=== PATIENT | male | born 1960 | race Caucasian/White ===

== ENCOUNTER 2017-10-22 18:46 | Observation (INO) ==
[2017-10-22] MEDS ORDERED: methylPREDNISolone 125 MG/2 ML VIAL IVP ONE (19:06)
[2017-10-22] MEDS ORDERED: Ipratropium/Albuterol Neb 3 ML IH ONE ×2 (19:06→21:20)
[2017-10-22] MEDS ORDERED: Aspirin 81 MG TAB.CHEW PO STA (19:09)
--- NOTE | 2017-10-22 19:12 | Emergency Department Note ---
Disposition Clinical Impression: Acute exacerbation of chronic obstructive airways disease, Chest pain Disposition: Admitted As Inpatient Condition: Fair Instructions: Chest Pain (ED), Chronic Obstructive Pulmonary Disease (ED) Reasons to Return/Additional Instructions: Patient is advised to follow up in 1-2 days with PCP / primary care doctor... and / or Specialist for a quick recheck Patient should return immediately if there is any change in symptoms, problems or needs help. Prescriptions: PredniSONE [Deltasone] 60 mg PO QDPC 7 Days #7 tablet Referrals: Pinky Martell [Primary Care Provider] - Forms: ED Satisfaction Letter Time of Disposition: 21:55 General Adult HPI - General Chief complaint: ED Shortness of Breath/Dyspnea Stated complaint: weak, difficulty breathing Time Seen by Provider: 10/22/17 19:00 Source: patient Limitations: no limitations Nursing Notes Reviewed: Yes Vital Signs Reviewed: Yes - History of Present Illness HPI Narrative: Patient presents today with CC of: short of breath Patient describes issue began around 1 PM when the patient was working on some windows when he developed significant shortness of breath while he was working in the sun. He has also been having cough and some sputum production recently. Patient had some chest pain that he described as tightnes bu that resolved and he is not having any pain now. Patient has multiple risk factors for cardiac disease including age, family history, male, smoking. Patient has stress test several years ago and was normal. Patient was feeling fine during the morning and yesterday, today he was working in the sun while this happened and thinks that eacerbated the problem. He was trying to work on the shady side of the house for most of the early part of the day [he is a satellite dish installer] Patient's did not have radiation of the tightness, nor did he have any vomiting. Patient does have a history of COPD. He uses inhalers. Patient has not been exposed to anybody sick. He denies hemoptysis leg swelling or tenderness Pain Scale: 0 - Related Data Home Medications Medication Instructions Recorded Confirmed Lisinopril [Zestril] 40 mg PO DAILY 10/22/17 10/22/17 Metoprolol Tartrate 50 mg PO BID 10/22/17 10/22/17 amLODIPine [Norvasc] 5 mg PO DAILY 10/22/17 10/22/17 Previous Rx's Medication Instructions Recorded PredniSONE [Deltasone] 60 mg PO QDPC 7 Days #7 tablet 10/22/17 Allergies Allergy/AdvReac Type Severity Reaction Status Date / Time azithromycin Allergy Hives Verified 10/22/17 19:09 [From Zithromax Z-Matti] All systems ED: reviewed and negative except as stated. Review of Systems: As Per HPI Past Medical History - Past Medical History Medical history: Reports: COPD, hypertension Psychiatric history: Reports: no psych history - Social History Smoking Status: Current every day smoker Smokeless Tobacco Status: No Alcohol use: Reports: none Drug use: Reports: none Physical Exam I have reviewed initial and available nurse's notes for the patient. The patient 's medications, allergies, and medical history was reviewed. Family, Social & Surg histories were reviewed and are not relevant except as noted above in the history of present illness, or below in the respective specific section. I have reviewed and agree with all vital signs synchronously available in EMR at the time of this dictation. Times documented are the time of computer entry, are not necessarily the time the event occurred. At least 10 systems reviewed with patient or surrogate during physical exam and are otherwise negative. Physical EXAM: General ~ Constitutional: Conscious & cooperative , generally healthy appearance Head: NCAT Eyes: Sclera white , conjunctiva clear , PERRL, non-icteric ENT : L Tympanic membrane normal color and landmarks R Tympanic membrane normal color and landmarks Canals are clear without significant drainage , no obstruction or vesicles , pinna and tragus non tender Nose with pink nasal mucosa, nares patent, non tender without bleeding Mouth - mucous membrane moist , pink , no lesions , no trismus Neck - no masses , supple , no cervical spinous process tenderness Pharynx - no exudate , no petechia or obvious lesions , no airway obstruction or stridor Hematologic ~ Lymphatic ~ Immunologic: Lymphadenopathy normal , no petechia , Skin color, nails and pulses unremarkable. Heart ~ Chest: Reg rate , nml Rhythm , nl S1/S2 , no MRG Lungs: Breath sounds equal , clear to auscultation bilaterally but some end expiratory wheezing, no rales or rhonchi , no CVA tenderness Gastrointestinal ~ Abd: Soft & non tender , BS + in 4 quads , No HSM or masses , no peritoneal signs GenitoUrinary: Deferred Musculoskeletal ~ Back ~ Extremities: Warm and w/o clubbing , cyanosis , or edema. No point tenderness , good ROM of major joints Neurologic: Cranial nerves grossly intact, good muscle strength , attention good , cooperative , Alert and oriented x4 Psychiatric: Calm , Insight and mood appropriate , Skin: No rashes , good skin turgor , cap refill 2-3 seconds , warm and dry - General Limitations: no limitations General appearance: alert, in no apparent distress Course - Reevaluation(s) Reevaluation #1: I had a long discussion with the patient regarding the visit, chief complaint, the assessment of the condition and the multiple Diagnosis that are being considered based on the patients complaint and evaluation COPD exacerbation, Chest pain We discussed the many of the BENEFITS of following discussed recommendations - like further testing and / or even admission to the hospital for more definitive care. We discussed the RISKS of not following the discussed recommends including incapacitation, deformity and . The patient verbalized understanding of both the Risks and the Benefits. The patient indicated that they would not be following my recommended advice, rather they will instead be following up with a Provider as an outpatient. I encouraged the patient to reconsider, but the patient was resolute. Family & friends were supportive. The patient had DMC (Decision Making Capability), and was alert and oriented to person, place, time, and situation. The patient showed no signs of intoxication or psychosis. I encouraged the patient to return or call 911 if urgent or emergent care was needed after leaving - The patient agreed. The patient was also encouraged to return if they reconsidered and would like further testing, consideration for admission or transfer to another institution for more testing or definitive care. Time: 20:10 Vital Signs Temperature 98.0 F 10/22/17 18:49 Pulse Rate 85 10/22/17 18:49 Respiratory Rate 24 10/22/17 18:49 Blood Pressure 188/102 10/22/17 18:49 O2 Sat by Pulse Oximetry 95 10/22/17 18:49 Temperature 99.1 F 10/22/17 21:20 Pulse Rate 80 10/22/17 21:20 Respiratory Rate 20 10/22/17 21:20 Blood Pressure 146/94 10/22/17 21:20 O2 Sat by Pulse Oximetry 94 10/22/17 21:20 Oxygen Delivery Oxygen Delivery Nasal Cannula Medical Decision Making - MDM Narrative Medical decision making narrative: MDM: History and physical exam is consistent with - COPD exacerbation,atypical CP DDx included multiple etiologies for the symptoms such as - atypical CP, ACS, Pneumonia, pneumothorax, Gerd, AAA, PE XRAYS: No Acute CP disease copd Critical Care: None Condition and evaluation here was discussed in detail. Labwork, and test results were reviewed with the patient. We discussed the radiology results as well patient felt significantly better after the breathing treatment and steroid medication in the emergency department. He did not want to stay around for additional troponin testing or be admitted to the hospital. I long discussion with the patient regarding risks and benefits please see informed refusal note. Patient wants to follow-up with his primary care provider as an outpatient. Patient did feel significantly better after the breathing treatment and steroid medication surrogate medication will be extended. Patient will continue to use his regular breathing treatments / inhalers Patient was doing very well and was ready to go home however when he went out to the car and started to exert himself he became more short of breath. Also was extremely humid and hot outside the patient had difficulty breathing again today came back and his troponin was rechecked and so was his EKG and the patient was given breathing treatment. He felt better again but he was concerned enough to agree to stay in the hospital. I contacted Dr. Barroso the patient was admitted as an observation patient for COPD exacerbation, atypical chest pain. - Lab Data Result diagrams: 10/22/17 18:55 10/22/17 18:55 Lab Results 10/22/17 10/22/17 10/22/17 Range/Units 18:55 18:55 18:55 WBC 14.0 H (4.3-11.1) K/mcL RBC 4.92 (4.19-5.50) M/mcL Hgb 16.2 (12.9-16.9) g/dL Hct 47.3 (37.5-50.1) % MCV 96.1 (83.0-100.0) fL MCH 32.9 (28.0-33.3) pg MCHC 34.2 (31.6-35.5) g/dL RDW 13.5 (11.5-14.5) % Plt Count 252 (140-400) K/mcL MPV 10.1 (9.4-12.4) fL Immature Gran % 0.3 (0-4) % Seg Neutrophils % 61.8 % Lymphocytes % 26.8 % Monocytes % 10.2 % Eosinophils % 0.5 % Basophils % 0.4 % Neutrophils # 8.7 (1.6-8.9) K/mcL Lymphocytes # 3.8 (0.6-4.6) K/mcL Monocytes # 1.4 H (0.0-1.3) K/mcL Eosinophils # 0.1 (0.0-0.6) K/mcL Basophils # 0.1 (0.0-0.2) K/mcL Sodium 134 L (136-145) mEq/L Potassium 4.2 (3.5-5.1) mEq/L Chloride 99 (98-107) mEq/L Carbon Dioxide 24 (23-29) mEq/L BUN 10 (6-20) mg/dL Creatinine 0.98 (0.70-1.30) mg/dL Est GFR ( Amer) > 60 (> 60) Est GFR (Non-Af Amer) > 60 (> 60) BUN/Creatinine Ratio 10 (6-26) Glucose 85 (70-105) mg/dL Calculated Osmolality 276 L (280-300) Lactic Acid 1.6 (0.5-2.2) mmol/L Calcium 9.9 (8.6-10.3) mg/dL Troponin I < 0.03 (< 0.04) ng/mL B-Natriuretic Peptide (Less than 100) pg/mL 10/22/17 10/22/17 10/22/17 Range/Units 18:55 20:59 20:59 WBC (4.3-11.1) K/mcL RBC (4.19-5.50) M/mcL Hgb (12.9-16.9) g/dL Hct (37.5-50.1) % MCV (83.0-100.0) fL MCH (28.0-33.3) pg MCHC (31.6-35.5) g/dL RDW (11.5-14.5) % Plt Count (140-400) K/mcL MPV (9.4-12.4) fL Immature Gran % (0-4) % Seg Neutrophils % % Lymphocytes % % Monocytes % % Eosinophils % % Basophils % % Neutrophils # (1.6-8.9) K/mcL Lymphocytes # (0.6-4.6) K/mcL Monocytes # (0.0-1.3) K/mcL Eosinophils # (0.0-0.6) K/mcL Basophils # (0.0-0.2) K/mcL Sodium (136-145) mEq/L Potassium (3.5-5.1) mEq/L Chloride (98-107) mEq/L Carbon Dioxide (23-29) mEq/L BUN (6-20) mg/dL Creatinine (0.70-1.30) mg/dL Est GFR ( Amer) (> 60) Est GFR (Non-Af Amer) (> 60) BUN/Creatinine Ratio (6-26) Glucose (70-105) mg/dL Calculated Osmolality (280-300) Lactic Acid 1.3 (0.5-2.2) mmol/L Calcium (8.6-10.3) mg/dL Troponin I < 0.03 (< 0.04) ng/mL B-Natriuretic Peptide 69 (Less than 100) pg/mL - Radiology Data Radiology results reviewed: Yes I reviewed the patient's radiology results. - EKG Data EKG #1 EKG attestation: Yes I reviewed and interpreted this EKG. EKG results narrative: HEART SCORE : H=1 E=1 A=1 R=2 T=0 HEART Score: H= Suspiciousness: High=2, mod=1, min=0 E= EKG: Significant ST=2, nonspecific repol=1, normal=0 A= Age: >65 =2, 45-65=1, ,45=0 R= Risk Factors: >3 RF or hx of ASVD=2, 1-2 RF=1, 0 RF=0 smoker, Lipids, HTN, diabetes mellitus, + family history, obesity, T= Troponin: >3xnrml=2, 1-3Xnrml=1, < nrml=0 EKG interpretation # 1 Rhythm - sinus rhythm Rate - 90 MO - 149 QRS - 109 QTC - 392 ST-T waves - nonspecific T-wave change flattening avl Injury pattern - no acute injury pattern EKG interpretation # 2 Rhythm - sinus rhythm Rate - 82 MO - 148 QRS - 97 QTC - 409 ST-T waves - nonspecific T-wave change flattening avl Injury pattern - no acute injury pattern
[2017-10-22] MEDS ORDERED: 0.9 % Sodium Chloride 1,000 ML IVC SCH (19:15)
[2017-10-22 19:16] LABS: Basophils # 0.1 K/mcL (0.0-0.2); Basophils % 0.4 %; Eosinophils # 0.1 K/mcL (0.0-0.6); Eosinophils % 0.5 %; Hematocrit 47.3 % (37.5-50.1); Hemoglobin 16.2 g/dL (12.9-16.9); Immature Granulocytes % 0.3 % (0-4); Lymphocytes # 3.8 K/mcL (0.6-4.6); Lymphocytes % 26.8 %; Mean Corpuscular HGB Conc 34.2 g/dL (31.6-35.5); Mean Corpuscular Hemoglobin 32.9 pg (28.0-33.3); Mean Corpuscular Volume 96.1 fL (83.0-100.0); Mean Platelet Volume 10.1 fL (9.4-12.4); Monocytes # 1.4 K/mcL (0.0-1.3); Monocytes % 10.2 %; Neutrophils # 8.7 K/mcL (1.6-8.9); Platelet Count 252 K/mcL (140-400); Red Blood Count 4.92 M/mcL (4.19-5.50); Red Cell Distribution Width 13.5 % (11.5-14.5); Segmented Neutrophils % 61.8 %
[2017-10-22 19:29] LABS: BUN/Creatinine Ratio 10 (6-26); Blood Urea Nitrogen 10 mg/dL (6-20); Calcium 9.9 mg/dL (8.6-10.3); Carbon Dioxide 24 mEq/L (23-29); Chloride 99 mEq/L (98-107); Glucose 85 mg/dL (70-105); Osmolality,Calculated 276 (280-300); Potassium 4.2 mEq/L (3.5-5.1); Sodium 134 mEq/L (136-145); Troponin I < 0.03 ng/mL (< 0.04); eGFR For African Americans > 60 (> 60); eGFR For Non-African Americans > 60 (> 60)
[2017-10-23] MEDS ORDERED: 0.9 % Sodium Chloride 1,000 ML IVC SCH ×2 (00:16)
[2017-10-23] MEDS ORDERED: Naloxone 0.4 MG/ML INJ IVP PRN (00:16)
[2017-10-23] MEDS: Ipratropium/Albuterol Neb 3 ML IH SCH ×5 (00:57→23:49)
[2017-10-23] MEDS: 0.9 % Sodium Chloride 1,000 ML IVC SCH ×2 (01:03→08:38)
[2017-10-23 06:57] LABS: INR 1.1; Prothrombin Time 11.7 Seconds (9.4-12.1)
[2017-10-23 06:58] LABS: Basophils % 0.1 %; Immature Granulocytes % 0.4 % (0-4); Lymphocytes # 1.1 K/mcL (0.6-4.6); Lymphocytes % 14.7 %; Mean Corpuscular HGB Conc 34.8 g/dL (31.6-35.5); Mean Corpuscular Hemoglobin 33.1 pg (28.0-33.3); Mean Corpuscular Volume 95.2 fL (83.0-100.0); Mean Platelet Volume 10.4 fL (9.4-12.4); Monocytes # 0.1 K/mcL (0.0-1.3); Monocytes % 0.9 %; Neutrophils # 6.2 K/mcL (1.6-8.9); Platelet Count 229 K/mcL (140-400); Red Blood Count 4.41 M/mcL (4.19-5.50); Red Cell Distribution Width 13.4 % (11.5-14.5); Segmented Neutrophils % 83.9 %
[2017-10-23 07:07] LABS: BUN/Creatinine Ratio 14 (6-26); Blood Urea Nitrogen 12 mg/dL (6-20); Carbon Dioxide 22 mEq/L (23-29); Chloride 102 mEq/L (98-107); Glucose 166 mg/dL (70-105); Hemoglobin 14.6 g/dL (12.9-16.9); Osmolality,Calculated 282 (280-300); Potassium 3.9 mEq/L (3.5-5.1); Sodium 134 mEq/L (136-145); eGFR For African Americans > 60 (> 60); eGFR For Non-African Americans > 60 (> 60)
[2017-10-23] MEDS: Lisinopril 20 MG TABLET PO SCH (08:37)
[2017-10-23] MEDS: amLODIPine 5 MG TABLET PO SCH (08:38)
--- NOTE | 2017-10-23 10:26 | Internal Med History&Physical ---
Date of Encounter: 10/23/17 Time of Encounter: 10:24 Assessment and Plan (1) HTN (hypertension) Current visit: Yes Status: Chronic on meds and sable continue to adjust and follow as needed Qualifiers: Hypertension type: essential hypertension Qualified Code(s): I10 - Essential (primary) hypertension (2) Acute exacerbation of chronic obstructive airways disease Current visit: Yes Status: Acute Acute exacerbation of COPD , long time smoker . advised strongly to quit Tobacco . Continue HHN and inhalers , short course of prednisone , Remove oxygen and start ambulation , add esteban doxy to cover for any potential community acquired organism. Nicotine patch . if he continues to improve like this he could be discharged home this evening if he wishes or in the morning EKG has been normal and toponin negative. CXR negative for infiltrate Internal Medicine - H&P: HPI Chief complaint: SOB and cough Admitted From: Emergency Dept History of present illness: Mr. Mims is a 57 year old male significant hx of COPD and HTN who was working on his windows when he started having SOB associated with wheeze and cough No fever or chills He had been having cough for some time and was having dirty looking sputum No nausea vomiting or dirrhea. he was treated in the ED and was discharged but became SOb again when to his car . he required oxygenation to keep his pulse oxy better . At the present time he feels much better and feels that his breathing ins in much better control Still has some cough no fever or chills Past Med Surg Social Fam HX - Past Medical History Medical history: COPD, hypertension Psychiatric history: no psych history - Social History Smoking Status: Current every day smoker Packs per day: 1 Smokeless Tobacco Status: No Alcohol use: none Drug use: none - Family History Father Living Status: Still Living Hx Family Cardiac Disorders: Yes Hx Family Respiratory Disorders: Yes Hx Family Cancer: Yes Mother Hx Family Cardiac Disorders: Yes Internal Medicine - H&P: Meds Lisinopril [Zestril] 40 mg PO DAILY 10/22/17 [History] Metoprolol Tartrate 50 mg PO BID 10/22/17 [History] PredniSONE [Deltasone] 60 mg PO QDPC 7 Days #7 tablet 10/22/17 [Rx] amLODIPine [Norvasc] 5 mg PO DAILY 10/22/17 [History] 3 Allergy/AdvReac Type Severity Reaction Status Date / Time azithromycin Allergy Hives Verified 10/22/17 19:09 [From Zithromax Z-Matti] All Systems PM: A 10-system review of systems was performed and is negative for pertinent findings except as documented above in the HPI. - Constitutional Constitutional: no anorexia, no chills, no excessive sweating, no fatigue, no lethargy, no weakness - EENT Eyes: no diplopia, no dry eye, no loss of vision, no photophobia Nose, mouth and throat: no dysphagia, no nasal congestion, no nasal discharge, no post-nasal drip, no sinus pain, no sinus pressure, no sore throat, no throat swelling - Cardiovascular Cardiovascular ROS IM: dyspnea, dyspnea on exertion, no chest pain, no claudication, no diaphoresis, no edema, no irregular heart rhythm, no lightheadedness, no orthopnea, no palpitations, no paroxysmal nocturnal dyspnea , no syncope - Respiratory Respiratory: cough, dyspnea, dyspnea on exertion, wheezing, chest congestion, excessive phlegm production, change in phlegm color, no hemoptysis, no snoring, no stridor, no pain on inspiration, no pain with cough - Gastrointestinal Gastrointestinal: no abdominal pain, no bloating, no change in bowel habits, no coffee ground emesis, no constipation, no diarrhea, no dyspepsia, no dysphagia, no heartburn, no hematemesis, no hematochezia, no melena, no nausea, no odynophagia - Genitourinary Genitourinary ROS male: no dysuria, no flank pain, no penile discharge, no post void dribbling, no urinary frequency, no urinary hesitancy, no urinary incontinence, no urinary urgency - Musculoskeletal Musculoskeletal ROS IM: no muscle cramps, no muscle weakness, no neck pain, no numbness - Neurological Neurological ROS: dizziness, no abnormal gait, no confusion, no convulsions, no disequilibrium, no memory loss, no numbness, no radicular pain, no restless legs , no weakness - Psychiatric Psychiatric: no homicidal ideation, no suicidal ideation - Constitutional Vitals: Temp Pulse Resp BP Pulse Ox 98.0 F 83 18 122/76 96 10/23/17 07:29 10/23/17 07:29 10/23/17 07:29 10/23/17 07:29 10/23/17 07:29 General appearance: Present: A&O X 3, pleasant, no acute distress, answers questions appropriately - Head Head exam: Present: atraumatic - Eye Eye exam: Present: EOMI, PERRL - ENT ENT exam: Present: normal external ear exam, normal oropharynx - Neck Neck exam general surgery: Present: supple. Absent: tenderness, nuchal rigidity - Respiratory Respiratory exam: Present: decreased breath sounds, CTAB. Absent: respiratory distress, rhonchi, stridor, wheezes, tachypnea Additional comments: Air exchange is poor and decreased all lung joe - Cardiovascular Cardiovascular exam: Present: RRR, +S1, +S2. Absent: diastolic murmur, irregular rhythm, JVD, systolic murmur - GI/Abdominal GI/Abdominal exam: Present: normal bowel sounds, soft. Absent: diminished bowel sounds, distended, firm, guarding, rigid, tenderness - Extremities Exam Extremities exam: Present: warm. Absent: pedal edema, tenderness - Neurological Exam Neurological exam: Present: CN II-XII intact, oriented X3, no focal deficits, strengths equal and symetr throughout. Absent: facial droop, speech deficit Internal Med - H&P Results - Labs CBC & Chem 7: 10/23/17 06:15 10/23/17 06:15 Labs: Short CBC 10/23/17 Range/Units 06:15 WBC 7.4 (4.3-11.1) K/mcL Hgb 14.6 D (12.9-16.9) g/dL Hct 42.0 (37.5-50.1) % Plt Count 229 (140-400) K/mcL Neutrophils # 6.2 (1.6-8.9) K/mcL BMP 10/23/17 06:15 Sodium 134 L Potassium 3.9 Chloride 102 Carbon Dioxide 22 L BUN 12 Creatinine 0.88 Glucose 166 H Calcium 9.0 Cardiac Enzymes 10/23/17 10/23/17 Range/Units 00:37 06:15 Troponin I < 0.03 < 0.03 (< 0.04) ng/mL - Impressions ITS Impressions Chest X-Ray 10/23/17 00:16 IMPRESSION: Emphysema with COPD. Stable exam. D/ / Scottie Spencer / Scottie Spencer Interpreting Provider: Scottie Spencer - VTE Documentation of Mechanical Device: Intermittent pneumatic compression device
--- NOTE | 2017-10-23 10:38 | Discharge Summary ---
Orders not resulted at time of discharge: with PC in one week Date of Encounter: 10/23/17 Time of Encounter: 10:36 - Discharge Diagnosis (1) HTN (hypertension) Priority: Secondary Status: Chronic Comments: stable on present meds no new change Qualifiers: Hypertension type: essential hypertension Qualified Code(s): I10 - Essential (primary) hypertension (2) Acute exacerbation of chronic obstructive airways disease Priority: Primary Status: Acute Comments: He was treated with HHN , prednisone and oral antibiotics , Acute exacerbation of CPD . he has improved a lot and if continues to do well he could go home in the evening or in the morning . Hospital course: Mr. Mims is a 57 year old male was admitted for COPD exacerbation . GA was ruled out . He was started on steriod , with oral antibiotics. He has done well and his breathing is almost back to his normal . he will be given a trail of increase mobility and if he conintues to feels better he will be discharged in the evening or in the morning based on his movement and activity. - Time Spent with Patient Total time spent providing and/or coordinating discharge services: Greater than 30 minutes - Discharge Medications Home Medications: Lisinopril [Zestril] 40 mg PO DAILY 10/22/17 [History] Metoprolol Tartrate 50 mg PO BID 10/22/17 [History] PredniSONE [Deltasone] 60 mg PO QDPC 7 Days #7 tablet 10/22/17 [Rx] amLODIPine [Norvasc] 5 mg PO DAILY 10/22/17 [History] Allergies/Adverse Reactions: 3 Allergy/AdvReac Type Severity Reaction Status Date / Time azithromycin Allergy Hives Verified 10/22/17 19:09 [From Zithromax Z-Matti] Date of admission: 10/22/17 22:53 Primary care physician: Pinky Martell Discharging clinician: Hailey Barroso - Constitutional Vitals: Temp Pulse Resp BP Pulse Ox 98.0 F 83 18 122/76 96 10/23/17 07:29 10/23/17 07:29 10/23/17 07:29 10/23/17 07:29 10/23/17 07:29 General appearance: Present: A&O X 3, pleasant, no acute distress, answers questions appropriately - Head Head exam: Present: atraumatic - Eye Eye exam: Present: EOMI, PERRL - Neck Neck exam general surgery: Present: supple - Respiratory Respiratory exam: Present: CTAB. Absent: respiratory distress, rhonchi, stridor , wheezes, tachypnea Additional comments: decrease air entry on both sides no wheeze - Cardiovascular Cardiovascular exam: Present: RRR, rubs, +S1, +S2. Absent: irregular rhythm, JVD - GI/Abdominal GI/Abdominal exam: Present: normal bowel sounds, soft. Absent: rebound, splenomegaly - Extremities Exam Extremities exam: Absent: pedal edema, tenderness - Neurological Exam Neurological exam: Present: CN II-XII intact, oriented X3, no focal deficits. Absent: facial droop, speech deficit - Patient Status Disposition: Home, Self-Care Condition: Good Functional capacity at discharge: independent ambulation - Discharge Instructions Follow Up With: Pinky Martell [Primary Care Provider] - - Diet and Activity Activity: increase activity as tolerated Diet: advance to your usual diet - VTE Documentation of Mechanical Device: Intermittent pneumatic compression device
[2017-10-23] MEDS: Nicotine 21 MG PATCH.TD24 TD SCH (11:03)
[2017-10-23] MEDS: Doxycycline 100 MG CAPSULE PO SCH ×2 (11:10→21:25)
[2017-10-23] MEDS: predniSONE 20 MG TABLET PO SCH (11:10)
[2017-10-24] MEDS: Ipratropium/Albuterol Neb 3 ML IH SCH (05:13)
[2017-10-24 07:31] VITALS: BP 131/71
[2017-10-24] MEDS: Nicotine 21 MG PATCH.TD24 TD SCH (09:05)
[2017-10-24] MEDS: amLODIPine 5 MG TABLET PO SCH (09:05)
[2017-10-24] MEDS: predniSONE 20 MG TABLET PO SCH (09:05)
[2017-10-24] MEDS: Doxycycline 100 MG CAPSULE PO SCH (09:05)
[2017-10-24] MEDS: Lisinopril 20 MG TABLET PO SCH (09:05)
--- NOTE | 2017-10-24 10:01 | Electrocardiograph Report ---
[address] [address] Test Date: 2017-10-22 Pat Name: Jeff Mims Department: 2000 Room: 115 Gender: M Technical Engineer: KYLE : 1960 Requested By: Anjel Velázquez Order Number: [id number] Reading MD: Oh Vega Measurements Intervals [place] Rate: 90 P: 86 CA: 149 QRS: 73 QRSD: 109 T: 66 QT: 344 QTc: 392 Interpretive Statements SINUS RHYTHM Electronically Signed On 10-24-2017 9:59:15 EDT by Oh Vega
--- NOTE | 2017-10-24 10:04 | Electrocardiograph Report ---
[address] [address] Test Date: 2017-10-22 Pat Name: Jeff Mims Department: 2000 Room: 115 Gender: M Pattern Changer: KYLE : 1960 Requested By: Anjel Velázquez Order Number: [id number] Reading MD: Oh Vega Measurements Intervals [place] Rate: 82 P: 78 CA: 148 QRS: 70 QRSD: 97 T: 58 QT: 371 QTc: 409 Interpretive Statements SINUS RHYTHM Electronically Signed On 10-24-2017 10:03:04 EDT by Oh Vega
== END 2017-10-24 09:24 | disposition home or self-care (01) ==
LOC: EMEROOGRE 18:46 → INPGRE 18:46
PROVIDERS: ADMIT Internal Medicine

== ENCOUNTER 2020-03-10 08:22 | Observation (INO) ==
[2020-03-10] MEDS ORDERED: Aspirin 81 MG TAB.CHEW PO ONE (08:52)
[2020-03-10] MEDS ORDERED: Nitroglycerin 0.4 MG TAB.SUBL SL PRN (08:52)
[2020-03-10 09:04] LABS: Basophils % 0.5 %; Eosinophils # 0.1 K/mcL (0.0-0.6); Eosinophils % 1.2 %; Hemoglobin 16.2 g/dL (12.9-16.9); Immature Granulocytes % 0.2 % (0-4); Lymphocytes % 35.5 %; Mean Corpuscular HGB Conc 33.8 g/dL (31.6-35.5); Mean Corpuscular Hemoglobin 33.4 pg (28.0-33.3); Mean Platelet Volume 9.9 fL (9.4-12.4); Monocytes # 0.7 K/mcL (0.0-1.3); Neutrophils # 2.8 K/mcL (1.6-8.9); Platelet Count 232 K/mcL (140-400); Red Blood Count 4.85 M/mcL (4.19-5.50); Red Cell Distribution Width 13.6 % (11.5-14.5); Segmented Neutrophils % 49.6 %; White Blood Count 5.6 K/mcL (4.3-11.1)
[2020-03-10 09:11] LABS: Activated Partial Thrombo Time 28.8 Seconds (26.0-36.0)
[2020-03-10 09:17] LABS: Alanine Aminotransferase 52 Units/L (7-52); Albumin 4.4 g/dL (3.5-5.7); Albumin/Globulin Ratio 1.2 (1.1-2.2); Alkaline Phosphatase 59 Units/L (34-104); Aspartate Amino Transferase 43 Units/L (13-39); BUN/Creatinine Ratio 10 (6-26); Bilirubin,Direct 0.1 mg/dL (0.0-0.2); Bilirubin,Indirect 0.3 mg/dL (0.0-1.0); Bilirubin,Total 0.4 mg/dL (0.3-1.0); Blood Urea Nitrogen 9 mg/dL (6-20); Calcium 9.6 mg/dL (8.6-10.3); Carbon Dioxide 28 mEq/L (23-29); Chloride 98 mEq/L (98-107); Globulin 3.7 g/dL (2.4-3.5); Glucose 115 mg/dL (70-105); Osmolality,Calculated 278 (280-300); Potassium 4.2 mEq/L (3.5-5.1); Sodium 134 mEq/L (136-145); Total Protein 8.1 g/dL (6.4-8.9); eGFR For African Americans > 60 (> 60); eGFR For Non-African Americans > 60 (> 60)
[2020-03-10 09:20] LABS: Troponin I < 0.03 ng/mL (< 0.04)
[2020-03-10] MEDS ORDERED: Albuterol Neb 1.25 MG/3 ML VIAL IH PRN (11:06)
[2020-03-10] MEDS ORDERED: Perflutren Lipid Microsphere 1.3 ML in 0.9 % Sodium Chloride 8.7 ML IVP PRN (11:11)
[2020-03-10] MEDS: Nicotine 21 MG PATCH.TD24 TD SCH (12:15)
[2020-03-10] MEDS: Doxycycline 100 MG CAPSULE PO SCH ×2 (12:16→20:27)
[2020-03-10] MEDS ORDERED: cloNIDine HCL 0.1 MG TABLET PO PRN (13:11)
[2020-03-10] MEDS ORDERED: hydrALAZINE 25 MG TABLET PO PRN (15:39)
[2020-03-10] MEDS ORDERED: Acetaminophen 325 MG TABLET PO PRN (21:55)
[2020-03-10] MEDS ORDERED: *HR* LORazepam 0.5 MG TABLET PO PRN (21:57)
[2020-03-10] MEDS ORDERED: *HR* Labetalol 20 MG/4 ML SYRINGE IVP ONE (23:51)
[2020-03-11 02:44] LABS: Basophils # 0.1 K/mcL (0.0-0.2); Basophils % 0.7 %; Eosinophils # 0.1 K/mcL (0.0-0.6); Eosinophils % 1.2 %; Hematocrit 44.9 % (37.5-50.1); Hemoglobin 15.1 g/dL (12.9-16.9); Immature Granulocytes % 0.1 % (0-4); Lymphocytes # 2.6 K/mcL (0.6-4.6); Lymphocytes % 33.5 %; Mean Corpuscular HGB Conc 33.6 g/dL (31.6-35.5); Mean Corpuscular Hemoglobin 33.5 pg (28.0-33.3); Mean Corpuscular Volume 99.6 fL (83.0-100.0); Mean Platelet Volume 9.8 fL (9.4-12.4); Monocytes # 1.2 K/mcL (0.0-1.3); Monocytes % 16.3 %; Neutrophils # 3.7 K/mcL (1.6-8.9); Platelet Count 198 K/mcL (140-400); Red Blood Count 4.51 M/mcL (4.19-5.50); Red Cell Distribution Width 13.7 % (11.5-14.5); Segmented Neutrophils % 48.2 %; White Blood Count 7.6 K/mcL (4.3-11.1)
[2020-03-11 02:59] LABS: Alanine Aminotransferase 42 Units/L (7-52); Albumin 3.9 g/dL (3.5-5.7); Albumin/Globulin Ratio 1.1 (1.1-2.2); Alkaline Phosphatase 53 Units/L (34-104); Aspartate Amino Transferase 31 Units/L (13-39); BUN/Creatinine Ratio 14 (6-26); Bilirubin,Total 0.6 mg/dL (0.3-1.0); Blood Urea Nitrogen 13 mg/dL (6-20); Carbon Dioxide 26 mEq/L (23-29); Chloride 101 mEq/L (98-107); Globulin 3.4 g/dL (2.4-3.5); Glucose 98 mg/dL (70-105); Osmolality,Calculated 278 (280-300); Potassium 4.1 mEq/L (3.5-5.1); Sodium 134 mEq/L (136-145); Total Protein 7.3 g/dL (6.4-8.9); eGFR For African Americans > 60 (> 60); eGFR For Non-African Americans > 60 (> 60)
[2020-03-11] MEDS: Nicotine 21 MG PATCH.TD24 TD SCH (07:37)
[2020-03-11] MEDS: Doxycycline 100 MG CAPSULE PO SCH (07:38)
[2020-03-11] MEDS ORDERED: amLODIPine 5 MG TABLET PO SCH ×2 (09:00)
[2020-03-11] MEDS ORDERED: lisinopriL 20 MG TABLET PO SCH (09:00)
[2020-03-11] MEDS ORDERED: Aspirin 81 MG TAB.CHEW PO SCH (09:00)
[2020-03-11 09:04] LABS: Estimated Average Glucose 117 mg/dl
[2020-03-11] MEDS ORDERED: cloNIDine HCL 0.1 MG TABLET PO SCH (10:00)
[2020-03-11] MEDS ORDERED: Tiotropium 18 MCG inhalation IH SCH (10:00)
[2020-03-11 11:11] VITALS: BP 162/96
== END 2020-03-11 11:35 | disposition home or self-care (01) ==
LOC: INPGRE 08:22 → EMEROOGRE 08:22 → INPGRE 10:35
PROVIDERS: ADMIT Family Medicine; ATTEND Family Medicine